=== PATIENT | female | born 1985 | race Caucasian/White ===

== ENCOUNTER 2022-03-19 14:56 | Outpatient (CLI) | payer OTHER, SELFPAY ==
[2022-03-21 13:55] LABS: Follicle Stimulating Hormone 19.6 IU/L
== END 2022-03-19 14:57 | disposition home or self-care (01) ==
PROVIDERS: PCP Internal Medicine; Visit Provider Advanced Practice Midwife
DX: N93.9 Abnormal uterine and vaginal bleeding, unspecified (principal)
CPT/HCPCS: 83001; 84146; 84443

== ENCOUNTER 2022-03-25 17:04 | Outpatient (CLI) | payer OTHER, SELFPAY ==
--- NOTE | 2022-03-25 17:00 | CRLHL7_ITS ---
For Patients: As a result of the Century Cures Act, medical imaging exams and procedure reports are released immediately into your electronic medical record. You may view this report before your referring provider. If you have questions, please contact your health care provider. INDICATION: Abnormal uterine and vaginal bleeding, unspecified. COMPARISON: None. TECHNIQUE: 2D lin scale and color Doppler images were acquired of the pelvis using a transabdominal and transvaginal approach. FINDINGS: Sonographic images demonstrate a normal size and smooth outer contour of the uterus. The uterus is anteverted in position. The uterus measures 9.2 cm in length by 4.8 cm in AP diameter by 5.2 cm in transverse dimension. The myometrium has uniform echotexture. The endometrial lining measures 9 mm in composite thickness. Prominent periuterine vessels on the left. The right ovary measures 3.3 x 1.9 x 2.0 cm in size and the left ovary measures 3.3 x 1.7 x 2.3 cm in size. Blood flow is present within both ovaries. No free fluid in the cul-de-sac. IMPRESSION: Prominent left-sided periuterine vessels. Exam otherwise unremarkable. Dictated by Bre Falk MD @ 03/25/2022 6:14:32 PM (Electronically Signed)
== END 2022-03-25 17:05 | disposition home or self-care (01) ==
LOC: US 17:04
PROVIDERS: PCP Internal Medicine; Visit Provider Advanced Practice Midwife
DX: N93.9 Abnormal uterine and vaginal bleeding, unspecified (principal)
CPT/HCPCS: 76830; 76856

== ENCOUNTER 2023-10-20 09:29 | Outpatient (CLI) | payer OTHER, SELFPAY | END 2023-10-20 09:30 | disposition home or self-care (01) | LOC: NFLDREF 09:30 | PROVIDERS: PCP Internal Medicine; Visit Provider Obstetrics & Gynecology | DX: Z01.419 Encounter for gynecological examination (general) (routine) without abnormal findings (principal); Z13.6 Encounter for screening for cardiovascular disorders | CPT/HCPCS: 80061 ==

== ENCOUNTER 2024-01-13 08:03 | Outpatient (CLI) | payer OTHER, SELFPAY ==
--- NOTE | 2024-01-13 08:15 | CRLHL7_ITS ---
For Patients: As a result of the Century Cures Act, medical imaging exams and procedure reports are released immediately into your electronic medical record. You may view this report before your referring provider. If you have questions, please contact your health care provider. BILATERAL SCREENING MAMMOGRAM WITH COMPUTER-AIDED DETECTION AND TOMOSYNTHESIS TECHNIQUE: CC and MLO views were obtained. These mammographic images have been obtained using full-field digital technique. These mammographic images were interpreted with the benefit of computer-aided detection. Breast Tomosynthesis was used in this interpretation. COMPARISON FILM: Baseline. FINDINGS: The breasts are heterogeneously dense, which may obscure small masses. IMPRESSION: There is no radiographic evidence for malignancy. ASSESSMENT: BI-RADS Category 1: Negative RECOMMENDATION: Routine screening mammogram in 1 year. A lay language report of this examination will be provided to the patient. Ortiz Hanna M.D. Diagnostic Radiologist [email or web address] SP/Dictated by: Ortiz Hanna MD @ 01/17/2024 10:44:00 AM (Electronically Signed)
== END 2024-01-13 08:04 | disposition home or self-care (01) ==
LOC: MAMMO 08:03
PROVIDERS: PCP Internal Medicine; Visit Provider Obstetrics & Gynecology
DX: Z12.31 Encounter for screening mammogram for malignant neoplasm of breast (principal); R92.2 Inconclusive mammogram
CPT/HCPCS: 77063; 77067

== ENCOUNTER 2025-02-06 11:25 | Outpatient (CLI) | payer OTHER, SELFPAY ==
--- NOTE | 2025-02-06 11:30 | CRLHL7_ITS ---
For Patients: As a result of the Century Cures Act, medical imaging exams and procedure reports are released immediately into your electronic medical record. You may view this report before your referring provider. If you have questions, please contact your health care provider. BILATERAL DIGITAL SCREENING MAMMOGRAM WITH COMPUTER-AIDED DETECTION AND TOMOSYNTHESIS CLINICAL HISTORY: : Routine screening exam. COMPARISON: 01/13/2024 TECHNIQUE: Digital mammogram in CC and MLO projections including computer-aided detection (CAD). Tomosynthesis was used in this interpretation. BREAST COMPOSITION: The breasts are heterogeneously dense, which may obscure small masses. FINDINGS: RIGHT Breast: No suspicious findings LEFT Breast: Focal asymmetric density upper outer quadrant 4 cm from the nipple. IMPRESSION: LEFT breast asymmetry/mass. RECOMMENDATIONS: Additional mammographic views of the LEFT breast including 3D spot-compression MLO and 3D XCCL. LEFT breast ultrasound may also be required. [facility] will contact the patient. A lay language report of this examination will be provided to the patient. BI-RADS Category 0: Incomplete: Need Additional Imaging Evaluation Dictated by Ortiz Hanna MD @ 02/06/2025 1:25:29 PM Dictated by: Ortiz Hanna MD @ 02/06/2025 13:25:32 (Electronically Signed)
== END 2025-02-06 11:26 | disposition home or self-care (01) ==
LOC: MAMMO 11:25
PROVIDERS: PCP Internal Medicine; Visit Provider Obstetrics & Gynecology
DX: Z12.31 Encounter for screening mammogram for malignant neoplasm of breast (principal); N63.20 Unspecified lump in the left breast, unspecified quadrant; R92.333 Mammographic heterogeneous density, bilateral breasts
CPT/HCPCS: 77063; 77067

== ENCOUNTER 2025-02-12 10:30 | Outpatient (CLI) | payer OTHER, SELFPAY ==
--- NOTE | 2025-02-12 10:45 | CRLHL7_ITS ---
For Patients: As a result of the Century Cures Act, medical imaging exams and procedure reports are released immediately into your electronic medical record. You may view this report before your referring provider. If you have questions, please contact your health care provider. DIGITAL DIAGNOSTIC LEFT MAMMOGRAM USING TOMOSYNTHESIS LEFT BREAST ULTRASOUND CLINICAL HISTORY: LEFT breast mass/asymmetry. COMPARISON: 02/06/2025. TECHNIQUE: Digital LEFT mammogram in two projections. Tomosynthesis was used in this interpretation. Real-time ultrasound imaging of LEFT breast with imaging documentation. BREAST COMPOSITION: The breast is heterogeneously dense, which may obscure small masses. FINDINGS: 3D XCCL and 3D spot compression MLO LEFT breast mammogram images submitted. Decreased conspicuity of previously noted asymmetric density. No architectural distortion. No suspicious calcifications. Targeted LEFT breast ultrasound performed at 1 o`clock 4 cm from the nipple. Normal fibroglandular tissue. No suspicious findings. IMPRESSION: No evidence of malignancy. RECOMMENDATIONS: Routine screening mammography. A lay language report of this examination will be provided to the patient. BI-RADS Category 1: Negative Dictated by Ortiz Hanna MD @ 02/12/2025 11:22:33 AM jj/Dictated by: Ortiz Hanna MD @ 02/12/2025 11:22:00 AM (Electronically Signed)
--- NOTE | 2025-02-12 11:15 | CRLHL7_ITS ---
For Patients: As a result of the Cures Act, medical imaging exams and procedure reports are released immediately into your electronic medical record. You may view this report before your referring provider. If you have questions, please contact your health care provider. SEE DIGITAL DIAGNOSTIC LEFT MAMMOGRAM PERFORMED SAME DAY CRL:[email or web address] [email or web address]/Dictated by: Ortiz Hanna MD @ 02/12/2025 12:37:00 PM (Electronically Signed)
== END 2025-02-12 10:31 | disposition home or self-care (01) ==
LOC: MAMMO 10:31
PROVIDERS: PCP Internal Medicine; Visit Provider Obstetrics & Gynecology
DX: N63.20 Unspecified lump in the left breast, unspecified quadrant (principal); R92.8 Other abnormal and inconclusive findings on diagnostic imaging of breast
CPT/HCPCS: 76642; 77065; G0279